=== PATIENT | female | born 1975 | race Two or more races ===

== ENCOUNTER 2018-07-28 11:33 | Emergency (ER) | payer SELFPAY ==
[~2018-07-28] VITALS: Ht 157.5 cm; Wt 81.6 kg
[2018-07-28 11:45] VITALS: BP 136/87
[2018-07-28] MEDS ORDERED: KETOROLAC TROMETHAMINE INJ 30 MG/ML VIAL ONE (12:55)
[2018-07-28] MEDS ORDERED: ACETAMINOPHEN 325 MG TABLET ONE (12:55)
[2018-07-28] MEDS ORDERED: ACETAMINOPHEN 325 MG TABLET PO ONE (13:00)
[2018-07-28] MEDS ORDERED: KETOROLAC TROMETHAMINE INJ 30 MG/ML VIAL IM ONE (13:00)
--- NOTE | 2018-07-28 13:11 | NUR ---
PT TO XRAY VIA WHEELCHAIR.
== END 2018-07-28 15:38 | disposition home or self-care (01) ==
LOC: ER 11:35 → EDBD 11:35 → ER 15:38
DX: S39.012A Strain of muscle, fascia and tendon of lower back, initial encounter (principal); R51 Headache; Z90.89 Acquired absence of other organs; Z90.49 Acquired absence of other specified parts of digestive tract; V43.63XA Car passenger injured in collision with pick-up truck in traffic accident, initial encounter; Y93.89 Activity, other specified; Y92.413 State road as the place of occurrence of the external cause; Y99.8 Other external cause status
CPT/HCPCS: 72100; 96372; 99283; A4606; J1885; L0172